=== PATIENT | female | born 1950 | race Caucasian/White ===

== ENCOUNTER → 2017-02-24 | Outpatient (CLI) | payer BC ==
[~2017-02-24] MED LIST: ASPIRIN 32325 MG/TAB PO; ASPIRIN 81M81 MG/TA2 PO; CAL-600 W/D 6001 TAB PO; CALTRATE-600 W600 MG PO; FISH OIL 1000MG1 CAP PO; GLUCOSAMINE/CHONDROI PO; LIPITOR 40MG TA40 MG PO; LIPITOR80 MG PO; LISINOPRIL/HCTZ1 TA2 PO; LISINOPRIL/HCTZ1 TAB PO; LUTEIN20 M1 PO; LUTEIN20 MG PO; MAREPA1200 MG PO; MULTI VITAMINS1 TAB PO; MULTIPLE VITAMI1 T23 PO; MVI; NIACIN250 MG PO; NOLVADEX 1010 MG/TAB PO; PLAVIX 75MG TAB75 MG PO; PRINZIDE 12.5 M1 TAB PO; TOPROL XL 25MG25 MG PO; TOPROL XL 50MG50 MG PO; TOPROL XL25 MG PO; VITAMIN C500 MG PO; VITAMINC1000TA PO
== END ==
LOC: MC.RAD 08:29
DX: Z12.31 Encounter for screening mammogram for malignant neoplasm of breast (principal)

== ENCOUNTER → 2018-04-05 | Outpatient (CLI) | payer BC | LOC: MC.RAD 09:30 | DX: Z12.31 Encounter for screening mammogram for malignant neoplasm of breast (principal) ==

== ENCOUNTER 2018-06-13 18:04 | Emergency (ER) | payer MEDICARE ==
[~2018-06-13] VITALS: Ht 165.1 cm; Wt 82.7 kg
[2018-06-13] MEDS ORDERED: CELEXA10 MG PO (18:28)
[2018-06-13] MEDS ORDERED: CLEOCIN HC150 MG/CAP PO (19:57)
[2018-06-13] MEDS ORDERED: NORCO 325 MG-51 TAB PO (19:58)
[2018-06-13 20:25] VITALS: BP 149/84; PULSE 59
== END 2018-06-13 20:15 | disposition home or self-care (01) ==
LOC: COL.ER 18:04
DX: S01.511A Laceration without foreign body of lip, initial encounter (principal); I10 Essential (primary) hypertension; E78.5 Hyperlipidemia, unspecified; Z23 Encounter for immunization; Z79.82 Long term (current) use of aspirin; Z79.02 Long term (current) use of antithrombotics/antiplatelets; W01.0XXA Fall on same level from slipping, tripping and stumbling without subsequent striking against object, initial encounter; Y92.410 Unspecified street and highway as the place of occurrence of the external cause

== ENCOUNTER → 2019-03-14 | Outpatient (CLI) | payer MEDICARE ==
[~2019-03-14] VITALS: Ht 165.1 cm; Wt 79.7 kg
[~2019-03-14] MED LIST changes: -CAL-600 W/D 6001 TAB PO; +CALCIUM 600MG+D1 TAB PO; +CELEXA10 MG PO; +CLEOCIN HC150 MG/CAP PO; +GLUCOSAMINE/CHO1 CA4 PO; -GLUCOSAMINE/CHONDROI PO; +IMDUR 30MG30 MG/TAB PO; +ISORDIL TITRADO30 MG PO; +LEXAPRO 5MG5 MG PO; -LUTEIN20 MG PO; +NIACIN250 M2 PO; -NIACIN250 MG PO; +NORCO 325 MG-51 TAB PO; +SINGULAIR 110 MG/TAB PO
[2019-03-14 06:00] VITALS: BP 141/85; PULSE 66
[2019-03-14 07:10] VITALS: BP 136/61; PULSE 78
[2019-03-14 07:11] VITALS: BP 154/62; PULSE 76
[2019-03-14 07:12] VITALS: BP 146/52; PULSE 74
[2019-03-14 07:13] VITALS: BP 153/58; PULSE 72
== END ==
LOC: COL.CARD 05:39
DX: R07.9 Chest pain, unspecified (principal); I10 Essential (primary) hypertension; I25.10 Atherosclerotic heart disease of native coronary artery without angina pectoris; R06.02 Shortness of breath; E66.9 Obesity, unspecified; F32.5 Major depressive disorder, single episode, in full remission; G47.33 Obstructive sleep apnea (adult) (pediatric); D05.12 Intraductal carcinoma in situ of left breast; N95.1 Menopausal and female climacteric states; Z79.82 Long term (current) use of aspirin; Z79.02 Long term (current) use of antithrombotics/antiplatelets; Z83.3 Family history of diabetes mellitus; Z82.49 Family history of ischemic heart disease and other diseases of the circulatory system; Z92.3 Personal history of irradiation; Z68.31 Body mass index [BMI] 31.0-31.9, adult
CPT/HCPCS: A9500; J2785

== ENCOUNTER → 2019-04-11 | Outpatient (CLI) | payer MEDICARE, OTHER | LOC: MC.RAD 09:15 | DX: Z12.31 Encounter for screening mammogram for malignant neoplasm of breast (principal) ==

== ENCOUNTER → 2020-05-28 | Outpatient (CLI) | payer MEDICARE | LOC: MC.RAD 16:14 | DX: Z12.31 Encounter for screening mammogram for malignant neoplasm of breast (principal); Z98.890 Other specified postprocedural states; Z98.82 Breast implant status; Z92.3 Personal history of irradiation ==

== ENCOUNTER 2021-03-12 11:07 | Emergency (ER) | payer MEDICARE ==
[~2021-03-12] VITALS: Ht 165.1 cm; Wt 70.5 kg
[2021-03-12] MEDS ORDERED: NORCO 325 MG-51 TAB PO (12:58)
[2021-03-12 13:20] VITALS: BP 153/66; PULSE 48
== END 2021-03-12 13:20 | disposition home or self-care (01) ==
LOC: COL.ER 11:07
DX: S00.83XA Contusion of other part of head, initial encounter (principal); F32.9 Major depressive disorder, single episode, unspecified; I10 Essential (primary) hypertension; Z95.9 Presence of cardiac and vascular implant and graft, unspecified; Z88.0 Allergy status to penicillin; Z79.02 Long term (current) use of antithrombotics/antiplatelets; Z79.82 Long term (current) use of aspirin; W19.XXXA Unspecified fall, initial encounter